=== PATIENT | female | born 1990 | race Two or more races ===

== ENCOUNTER → 2020-12-16 | Outpatient (CLI) | payer BC, OTHER ==
[2020-12-16 08:08] LABS: Magnesium 2.3 mg/dL (1.6-2.6); Potassium 3.9 mmol/L (3.5-5.1)
[2020-12-16 08:16] LABS: BUN/Creatinine Ratio 13.3; CRP High Sensitivity 1.84 mg/dL (< 0.3)
== END | disposition home or self-care (01) ==
LOC: LAB 07:08
PROVIDERS: ATTEND Internal Medicine
DX: M25.511 Pain in right shoulder (principal)
CPT/HCPCS: 36415; 80048; 82550; 83735; 85652; 86141

== ENCOUNTER → 2021-12-23 | Outpatient (CLI) | payer BC | END | disposition home or self-care (01) | LOC: LAB 10:49 | PROVIDERS: ATTEND Internal Medicine | DX: M25.561 Pain in right knee (principal) | CPT/HCPCS: 36415; 84550; 85652; 86038; 86431 ==